=== PATIENT | female | born 1965 | race Two or more races ===

== ENCOUNTER 2017-12-26 10:40 | Emergency (ER) | payer OTHER ==
[~2017-12-26] VITALS: Ht 162.6 cm; Wt 63.5 kg
[2017-12-26] MEDS ORDERED: SYNTHROID50 MCG PO (10:56)
== END 2017-12-26 18:02 | disposition home or self-care (01) ==
LOC: ER 10:40 → CPU-OBS 11:28 → ER 18:02
DX: R07.89 Other chest pain (principal); M94.0 Chondrocostal junction syndrome [Tietze]
CPT/HCPCS: G0378; G0379; 93005

== ENCOUNTER 2020-09-24 15:03 | Emergency (ER) | payer OTHER ==
[~2020-09-24] VITALS: Ht 162.6 cm; Wt 64.4 kg
[~2020-09-24 15:03] MED LIST: SYNTHROID50 MCG PO
[2020-09-24] MEDS ORDERED: LOSARTAN POTASS50 MG PO (15:28)
[2020-09-24] MEDS ORDERED: SIMVASTATIN80 MG PO (15:29)
== END 2020-09-24 20:12 | disposition home or self-care (01) ==
LOC: ER 15:03
DX: M94.0 Chondrocostal junction syndrome [Tietze] (principal)

== ENCOUNTER 2021-07-17 08:19 | Outpatient (CLI) | payer OTHER ==
[~2021-07-17 08:19] MED LIST changes: +LOSARTAN POTASS50 MG PO; +SIMVASTATIN80 MG PO
== END 2021-07-17 08:23 | disposition home or self-care (01) ==
LOC: RX STUDY 08:19
DX: R13.19 Other dysphagia (principal)

== ENCOUNTER 2021-07-26 14:18 | Outpatient (CLI) | payer OTHER | END 2021-07-26 14:23 | disposition home or self-care (01) | LOC: RAD 14:18 | DX: M41.85 Other forms of scoliosis, thoracolumbar region (principal); M41.40 Neuromuscular scoliosis, site unspecified ==

== ENCOUNTER 2021-11-05 14:39 | Outpatient (CLI) | payer OTHER | END 2021-11-05 14:51 | disposition home or self-care (01) | LOC: MRI 14:39 | PROVIDERS: ATTEND Surgery | DX: M48.02 Spinal stenosis, cervical region (principal); M48.061 Spinal stenosis, lumbar region without neurogenic claudication | CPT/HCPCS: 72141; 72148 ==

== ENCOUNTER 2021-12-11 08:03 | Outpatient (CLI) | payer OTHER | END 2021-12-11 08:08 | disposition home or self-care (01) | LOC: RAD 08:03 | PROVIDERS: ATTEND Family Medicine | DX: R06.02 Shortness of breath (principal) ==

== ENCOUNTER 2022-05-30 10:10 | Outpatient (CLI) | payer OTHER | END 2022-05-30 10:19 | disposition home or self-care (01) | LOC: RAD 10:10 | PROVIDERS: ATTEND Specialist | DX: M40.55 Lordosis, unspecified, thoracolumbar region (principal); M54.12 Radiculopathy, cervical region; S13.4XXA Sprain of ligaments of cervical spine, initial encounter ==

== ENCOUNTER 2022-08-06 12:07 | Outpatient (CLI) | payer OTHER | END 2022-08-06 12:12 | disposition home or self-care (01) | LOC: MAMO-SONO 12:07 | PROVIDERS: ATTEND Family Medicine | DX: Z12.31 Encounter for screening mammogram for malignant neoplasm of breast (principal); N60.09 Solitary cyst of unspecified breast ==

== ENCOUNTER 2022-09-09 06:49 | Emergency (ER) | payer OTHER ==
[~2022-09-09] VITALS: Ht 162.6 cm; Wt 67.1 kg
== END 2022-09-09 13:09 | disposition home or self-care (01) ==
LOC: ER 06:49
DX: H11.31 Conjunctival hemorrhage, right eye (principal); I10 Essential (primary) hypertension; E03.9 Hypothyroidism, unspecified

== ENCOUNTER 2023-01-24 07:44 | Outpatient (CLI) | payer OTHER | END 2023-01-24 07:50 | disposition home or self-care (01) | LOC: RAD 07:44 | DX: Z01.811 Encounter for preprocedural respiratory examination (principal); R06.02 Shortness of breath ==